=== PATIENT | female | born 1975 | race Caucasian/White ===

== ENCOUNTER 2016-11-27 15:28 | Emergency (ER) | payer MEDICAID ==
[~2016-11-27] VITALS: Ht 157.5 cm; Wt 93.4 kg
[2016-11-27 15:34] VITALS: BP_SYST 160
[2016-11-27] MEDS ORDERED: ONDANSETRON 4 MG ODT TAB PO ONE (16:00)
[2016-11-27] MEDS ORDERED: KETOROLAC TROMETHAMINE 60 MG/2 ML VIAL IM ONE (16:00)
[2016-11-27 16:05] LABS: BILIRUBIN,URINE NEGATIVE (NEGATIVE); CLARITY/URINE CLEAR (CLEAR); COLOR,URINE YELLOW (YELLOW); GLUCOSE,URINE NEGATIVE (NEGATIVE); KETONES,URINE TRACE (NEGATIVE); LEUKOCYTE ESTERASE ,URINE TRACE (NEGATIVE); NITRITE, URINE NEGATIVE (NEGATIVE); PH,URINE 6.5 (5.0-8.0); PROTEIN URINE NEGATIVE (NEGATIVE)
[2016-11-27 16:06] LABS: BLOOD, URINE TRACE (NEGATIVE)
[2016-11-27 16:19] LABS: BACTERIA,URINE MODERATE /HPF (None Seen); MUCUS,URINE 1+ /LPF (None Seen)
[2016-11-27 16:20] LABS: BASOPHILS # (AUTO) 0.1 K/uL (0.0-0.2); BASOPHILS % (AUTO) 1.2 % (0.0-2.0); EOSINOPHILS # (AUTO) 0.3 K/uL (0.0-0.4); EOSINOPHILS % (AUTO) 2.8 % (0.0-4.0); HEMATOCRIT 42.7 % (36-48); HEMOGLOBIN 14.3 g/dL (12.0-16.0); LYMPHOCYTES # (AUTO) 2.2 K/uL (1.0-5.5); LYMPHOCYTES % (AUTO) 18.5 % (20.5-51.5); MEAN CORPUSCULAR HEMOGLOBIN 28 pg (27-31); MEAN CORPUSCULAR HGB CONC 34 % (32-36); MEAN CORPUSCULAR VOLUME 84 fL (79.0-98.0); MONOCYTES # (AUTO) 0.6 K/uL (0.0-1.0); MONOCYTES % (AUTO) 5.1 % (1.7-9.3); NEUTROPHILS # (AUTO) 8.5 K/uL (1.8-7.7); NEUTROPHILS % (AUTO) 72.4 % (40.0-70.0); PLATELET COUNT (AUTO) 212 K/uL (130-430); RED BLOOD CELL COUNT(AUTO) 5.11 MIL/uL (4.2-6.2); RED CELL DISTRIBUTION WIDTH 13.4 % (9.0-15.0); WHITE BLOOD COUNT (AUTO) 11.7 K/uL (4.8-10.8)
[2016-11-27 16:31] LABS: INR 0.9 (0.8-1.2); PROTHROMBIN TIME 10.3 SECS (9.5-12.5)
[2016-11-27 16:57] LABS: CALCIUM 8.4 mg/dL (8.4-11.0); CREATININE 0.93 mg/dL (0.55-1.30); POTASSIUM 3.9 mmol/L (3.5-5.1)
[2016-11-27 17:02] LABS: ALBUMIN 3.4 g/dL (3.4-4.8); TOTAL BILIRUBIN 0.4 mg/dL (0.0-1.0); TOTAL PROTEIN, SERUM 7.4 g/dL (6.4-8.3)
[2016-11-27 18:20] VITALS: BP_SYST 158
== END 2016-11-27 18:20 | disposition home or self-care (01) ==
LOC: SED 15:28
DX: K80.70 Calculus of gallbladder and bile duct without cholecystitis without obstruction (principal)
CPT/HCPCS: 36415; 74176; 80053; 81000; 81025; 82150; 83690; 84703; 85025; 85610; 85730; 87086; 96372; 99285; J1885; Q0162

== ENCOUNTER 2018-06-17 05:39 | Emergency (ER) | payer MEDICAID, OTHER ==
[~2018-06-17] VITALS: Ht 157.5 cm; Wt 104.3 kg
[2018-06-17 05:39] VITALS: BP_SYST 159
[2018-06-17] MEDS ORDERED: KETOROLAC TROMETHAMINE 60 MG/2 ML VIAL IM ONE (06:30)
[2018-06-17 07:26] VITALS: BP_SYST 128
== END 2018-06-17 07:26 | disposition home or self-care (01) ==
LOC: SED 05:39
DX: S23.3XXA Sprain of ligaments of thoracic spine, initial encounter (principal); S33.8XXA Sprain of other parts of lumbar spine and pelvis, initial encounter; S50.02XA Contusion of left elbow, initial encounter; I10 Essential (primary) hypertension; Z90.49 Acquired absence of other specified parts of digestive tract; W10.9XXA Fall (on) (from) unspecified stairs and steps, initial encounter; Y93.89 Activity, other specified; Y92.89 Other specified places as the place of occurrence of the external cause; Y99.8 Other external cause status
CPT/HCPCS: 72072; 72110; 73070; 96372; 99283; J1885

== ENCOUNTER 2019-06-19 16:31 | Emergency (ER) | payer OTHER ==
[~2019-06-19] VITALS: Ht 157.5 cm; Wt 95.3 kg
[2019-06-19 16:45] VITALS: BP_SYST 157
--- NOTE | 2019-06-19 18:09 | NUR ---
Patient to ER bed 4 to gown for evaluation. Side rails up. Report given to BASIA Vilchis.
--- NOTE | 2019-06-19 18:15 | NUR ---
Patient arrived in the ED accompanied by her sister c/o pain and swelling in her throat, fevers, cold, bodyaches, and chills that started this morning. Denied any chest pain or shortness of breath. Denied any nausea, vomiting or diarrhea. Patient is alert and oriented x4, respirations even and unlabored, speaking in full sentences and ambulating with a steady gait. VSS, pain level 10/10. Sister at bedside. Informed of the approximate wait time. Instructed to notify ED staff for any changes in condition or worsening of symptoms. Patient verbalized understanding.
--- NOTE | 2019-06-19 18:50 | NUR ---
ER CARIE Tao at bedside examining patient.
[2019-06-19] MEDS ORDERED: DEXAMETHASONE SOD PHOSPHATE 10 MG/ML VIAL IM ONE (19:00)
[2019-06-19] MEDS ORDERED: PENICILLIN G BENZATHINE 1.2 MMU/2 ML SYR IM ONE (19:00)
--- NOTE | 2019-06-19 19:03 | NUR ---
Administered Penicillin and Decadron IM as ordered by Odalys Tao (CARIE). Patient tolerated the medications well. See eMAR for details.
--- NOTE | 2019-06-19 19:16 | NUR ---
Report given and care transferred to BASIA Oliva.
--- NOTE | 2019-06-19 19:20 | NUR ---
Report recieved from dayshift RN at bedside via SBAR approach. Pt in bed stable, will continue to monitor.
[2019-06-19 20:07] VITALS: BP_SYST 134
--- NOTE | 2019-06-19 20:07 | NUR ---
Patient given written and verbal discharge instructions and verbalizes understanding. ER MD discussed with patient the results and treatment provided. Patient in stable condition. ID arm band removed. Rx of Tylenol, Motrin, and Prednisone given. Patient educated on pain management and to follow up with PMD. Pain Scale 0/10. Opportunity for questions provided and answered. Medication side effect fact sheet provided.
== END 2019-06-19 20:07 | disposition home or self-care (01) ==
LOC: SED 16:31
DX: J02.9 Acute pharyngitis, unspecified (principal); I10 Essential (primary) hypertension; Z90.49 Acquired absence of other specified parts of digestive tract
CPT/HCPCS: 36415; 86403; 87081; 96372; 99283; J0561; J1100

== ENCOUNTER 2019-11-18 13:44 | Emergency (ER) | payer OTHER ==
[~2019-11-18] VITALS: Ht 157.5 cm; Wt 99.8 kg
[2019-11-18 13:54] VITALS: BP_SYST 150
[2019-11-18] MEDS ORDERED: KETOROLAC TROMETHAMINE 30 MG VIAL IVP ONE (14:00)
[2019-11-18 14:24] LABS: BILIRUBIN,URINE NEGATIVE (NEGATIVE); BLOOD, URINE 1+ (NEGATIVE); COLOR,URINE YELLOW (YELLOW); GLUCOSE,URINE NEGATIVE (NEGATIVE); KETONES,URINE NEGATIVE (NEGATIVE); LEUKOCYTE ESTERASE ,URINE NEGATIVE (NEGATIVE); NITRITE, URINE NEGATIVE (NEGATIVE); PH,URINE 6.5 (5.0-8.0); PROTEIN URINE TRACE (NEGATIVE); UROBILINOGEN,URINE 0.2 (0.2-1.0)
--- NOTE | 2019-11-18 14:24 | NUR ---
Patient to ER bed 2 to gown for evaluation. Side rails up. Report given to YOGESH FLOR.
[2019-11-18 14:33] LABS: RED BLOOD CELL COUNT(AUTO) 5.08 MIL/uL (4.2-6.2)
[2019-11-18 14:36] LABS: BASOPHILS # (AUTO) 0.1 K/uL (0.0-0.2); BASOPHILS % (AUTO) 0.9 % (0.0-2.0); EOSINOPHILS # (AUTO) 0.2 K/uL (0.0-0.4); EOSINOPHILS % (AUTO) 2.6 % (0.0-4.0); HEMATOCRIT 38.1 % (36-48); HEMOGLOBIN 12.3 g/dL (12.0-16.0); LYMPHOCYTES # (AUTO) 1.8 K/uL (1.0-5.5); LYMPHOCYTES % (AUTO) 19.1 % (20.5-51.5); MEAN CORPUSCULAR HEMOGLOBIN 24 pg (27-31); MEAN CORPUSCULAR HGB CONC 32 % (32-36); MEAN CORPUSCULAR VOLUME 75 fL (79.0-98.0); MONOCYTES # (AUTO) 0.4 K/uL (0.0-1.0); MONOCYTES % (AUTO) 3.8 % (1.7-9.3); NEUTROPHILS # (AUTO) 6.7 K/uL (1.8-7.7); NEUTROPHILS % (AUTO) 73.6 % (40.0-70.0); PLATELET COUNT (AUTO) 220 K/uL (130-430); RED CELL DISTRIBUTION WIDTH 16.3 % (9.0-15.0); WHITE BLOOD COUNT (AUTO) 9.2 K/uL (4.8-10.8)
[2019-11-18 14:37] LABS: CALCIUM 8.4 mg/dL (8.4-11.0); CREATININE 0.96 mg/dL (0.55-1.30); POTASSIUM 3.5 mmol/L (3.5-5.1)
--- NOTE | 2019-11-18 14:40 | NUR ---
DR PARISH IN TO ASSESS. PT CALM, ALERT, COOPERATIVE
[2019-11-18 14:41] LABS: ALBUMIN 3.4 g/dL (3.4-4.8); TOTAL BILIRUBIN 0.5 mg/dL (0.0-1.0)
[2019-11-18 14:45] LABS: CLARITY/URINE HAZY (CLEAR)
[2019-11-18 14:49] LABS: BACTERIA,URINE FEW /HPF (None Seen); MUCUS,URINE 1+ /LPF (None Seen); RBC,URINE 0-3 /HPF (0-3); WBC,URINE 0-3 /HPF (0-3)
--- NOTE | 2019-11-18 14:54 | NUR ---
CT ABD/PELVIS COMPLETED. NO DISTRESS, RESP UNLABORED, SKIN WARM AND DRY
--- NOTE | 2019-11-18 15:00 | NUR ---
ALERT, CALM, RESP UNLABORED, SKIN WARM AND DRY. COMMUNICATES CLEARLY. DENIES RECENT INJURY
[2019-11-18] MEDS ORDERED: methylPREDNISolone SOD SUCC 500 MG/VIAL (Solu-MEDROL) IV ONE (15:45)
[2019-11-18 16:20] VITALS: BP_SYST 141
--- NOTE | 2019-11-18 16:20 | NUR ---
Patient given written and verbal discharge instructions and verbalizes understanding. ER MD discussed with patient the results and treatment provided. Patient in stable condition. ID arm band removed. IV catheter removed intact and dressing applied, no active bleeding. Rx given. Patient educated on pain management and to follow up with PMD. Pain Scale Opportunity for questions provided and answered. Medication side effect fact sheet provided.
== END 2019-11-18 16:20 | disposition home or self-care (01) ==
LOC: SED 13:44
DX: N23 Unspecified renal colic (principal); R31.9 Hematuria, unspecified; I10 Essential (primary) hypertension
CPT/HCPCS: 36415; 74176; 80053; 81000; 81025; 85025; 96374; 99284; J1885

== ENCOUNTER 2020-01-16 09:23 | Emergency (ER) | payer OTHER, SELFPAY ==
[~2020-01-16] VITALS: Ht 157.5 cm; Wt 99.8 kg
[2020-01-16 09:35] VITALS: BP_SYST 138
[2020-01-16 11:39] VITALS: BP_SYST 138
== END 2020-01-16 11:39 | disposition home or self-care (01) ==
LOC: SED 09:23
DX: N39.0 Urinary tract infection, site not specified (principal); I10 Essential (primary) hypertension; Z20.828 Contact with and (suspected) exposure to other viral communicable diseases
CPT/HCPCS: 81002; 87086; 99283; U0003

== ENCOUNTER 2021-05-12 17:15 | Emergency (ER) | payer OTHER, SELFPAY ==
[~2021-05-12] VITALS: Ht 157.5 cm; Wt 98.4 kg
[2021-05-12 17:15] VITALS: BP_SYST 161
[2021-05-12] MEDS ORDERED: IBUPROFEN 600 MG TABLET PO ONE (18:15)
[2021-05-12] MEDS ORDERED: NAPR-690 PO (18:49)
[2021-05-12 19:25] VITALS: BP_SYST 152
== END 2021-05-12 19:25 | disposition home or self-care (01) ==
LOC: SED 17:15
DX: S63.601A Unspecified sprain of right thumb, initial encounter (principal); I10 Essential (primary) hypertension; Z79.899 Other long term (current) drug therapy; W18.39XA Other fall on same level, initial encounter; Y93.89 Activity, other specified; Y92.89 Other specified places as the place of occurrence of the external cause; Y99.8 Other external cause status
CPT/HCPCS: 73140-TC; 99283

== ENCOUNTER → 2022-08-27 | Emergency (ER) | payer SELFPAY ==
[~2022-08-27] VITALS: Ht 157.5 cm; Wt 95.3 kg
[~2022-08-27] MED LIST: CIPR500T5 PO; HYDR-3917 PO; IBUP-1971 PO; MORPHINE 4 MG INJ. 4 MG/ML VIAL IM ONE; NAPR-690 PO
[2022-08-27 18:42] VITALS: BP_SYST 150
[2022-08-27 19:09] LABS: BILIRUBIN,URINE NEGATIVE (NEGATIVE); BLOOD, URINE NEGATIVE (NEGATIVE); CLARITY/URINE CLEAR (CLEAR); COLOR,URINE YELLOW (YELLOW); GLUCOSE,URINE NEGATIVE (NEGATIVE); KETONES,URINE NEGATIVE (NEGATIVE); LEUKOCYTE ESTERASE ,URINE TRACE (NEGATIVE); NITRITE, URINE NEGATIVE (NEGATIVE); PH,URINE 5.5 (5.0-8.0); PROTEIN URINE NEGATIVE (NEGATIVE); UROBILINOGEN,URINE 0.2 (0.2-1.0)
[2022-08-27 19:20] LABS: BACTERIA,URINE FEW /HPF (None Seen); MUCUS,URINE None Seen /LPF (None Seen); RBC,URINE NONE SEEN /HPF (0-3)
--- NOTE | 2022-08-27 20:45 | NUR ---
Patient given written and verbal discharge instructions and verbalizes understanding. ER MD discussed with patient the results and treatment provided. Patient in stable condition. ID arm band removed. Patient educated on pain management and to follow up with PMD. Opportunity for questions provided and answered. Medication side effect fact sheet provided.
[2022-08-27 21:16] VITALS: BP_SYST 150
== END | disposition home or self-care (01) ==
LOC: SED 18:20
DX: N39.0 Urinary tract infection, site not specified (principal); M54.6 Pain in thoracic spine; I10 Essential (primary) hypertension; Z79.899 Other long term (current) drug therapy
CPT/HCPCS: 99283; 81000; 81025; 96372; J2270